=== PATIENT | female | born 1985 | race Asian ===

== ENCOUNTER 2017-03-11 12:43 | Emergency (ER) | payer OTHER ==
[2017-03-11 15:41] LABS: Hematocrit 40 % (35-47); Hemoglobin 13.6 g/dl (12.0-16.0); Mean Corpuscular HGB Conc 34 g/dl (31-36); Mean Corpuscular Hemoglobin 31 pg (27-31); Mean Corpuscular Volume 92 fL (80-97); Mean Platelet Volume 8 um3 (7.4-10.4); Red Blood Count 4.37 10^6/ul (4.0-5.4); Red Cell Distribution Width 14 % (10.5-15)
[2017-03-11 15:57] LABS: BUN/Creatinine Ratio 13.6 (8-20); Calcium 9.4 mg/dL (8.6-10.3); EGFR African American 151.9 (>60); EGFR Non-African American 118.1 (>60); Potassium 3.6 mmol/L (3.5-5.0)
[2017-03-11 15:59] LABS: Urine Bilirubin Negative (Negative); Urine Glucose Negative (Negative); Urine Nitrite Negative (Negative)
[2017-03-11 16:14] LABS: Urine Bacteria 2+ (Absent)
--- NOTE | 2017-03-11 18:57 | RAD ---
HISTORY: Abdominal pain in a woman. COMPARISONS: None TECHNIQUE: Multiple transverse and longitudinal ultrasound images were obtained of the pelvis using grayscale, color flow, spectral and M-mode sonographic imaging. FINDINGS: UTERUS: The uterus is normal in shape, size, contour, and echotexture. GESTATION: The gestational sac measures 1.7 x 1.2 x 1.8 cm. This yields a mean rotational sac diameter of 1.6 cm, corresponding to gestational age of 6 weeks and 3 days. A 3 mm yolk sac is identified. No pole is visualized. CUL-DE-SAC: There is no free fluid within the cul-de-sac. RIGHT OVARY: The right ovary measures 3 x 2 x 2.4 cm. LEFT OVARY: The left ovary measures 2.6 x 1.6 x 2.0 cm. IMPRESSION: Gestational sac with a mean sac diameter of 1.6 cm corresponding to a gestational age of 6 weeks and 3 days without identification of a pole. These findings could BE due to pole too early to visualize, spontaneous or ectopic . Close clinical and sonographic follow-up including serial beta hCG acquisition is advised.
[2017-03-11] MEDS ORDERED: Cephalexin CAP* 500 MG PO ONE (19:01)
[2017-03-11 19:34] VITALS: BP 115/53
--- NOTE | 2017-03-18 10:28 | ED ---
I, Oh,Soohzulema, scribed for Jose Eduardo Larose MD on 03/11/17 at 1529 . Abdominal Pain/Female - HPI Summary HPI Summary: Somewhat limited HPI due to certain level of language barrier. This 32 y/o female presents to ED for bilat lower abd pain. Positive nausea and diaphoresis. Negative for vomiting, vaginal discharge, or vaginal bleeding. She is 5 weeks . LMP was on 01/24/2017. Pt is currently on vitamin. Primary care involves provider in [place]. Pt has not established OB provider, but primary care involves Dr. Roche. - History of Current Complaint Chief Complaint: EDOBProblems Stated Complaint: 5WKS PREG/NAUSEA/SWEATS Time Seen by Provider: 03/11/17 15:10 Hx Obtained From: Patient Onset/Duration: Gradual Onset Pain Intensity: 4 Pain Scale Used: 0-10 Numeric Location: Discrete At: RLQ, Discrete At: LLQ Radiates: No Character: Dull Aggravating Factor(s): Nothing Alleviating Factor(s): Nothing Associated Signs and Symptoms: Positive: Diaphoresis, Nausea. Negative: Vaginal Bleeding, Vaginal Discharge, Vomiting Allergies/Adverse Reactions: Allergies Allergy/AdvReac Type Severity Reaction Status Date / Time No Known Allergies Allergy Verified 03/11/17 15:14 PMH/Surg Hx/FS Hx/Imm Hx Cardiovascular History: Denies: Hx Myocardial Infarction Infectious Disease History: Denies: Traveled Outside the [place] in Last 30 Days - Family History Known Family History: Negative: Other - ectopic - Social History Lives: With Family Alcohol Use: None Hx Substance Use: No Substance Use Type: Reports: None Hx Tobacco Use: No Smoking Status (MU): Never Smoked Tobacco Review of Systems Positive: Skin Diaphoresis. Negative: Fever, Chills Negative: Sore Throat Negative: Chest Pain Negative: Shortness Of Breath, Cough Positive: Abdominal Pain, Nausea. Negative: Vomiting Negative: dysuria, hematuria Negative: Myalgia, Edema Negative: Rash Neurological: Other - Negative for dizziness All Other Systems Reviewed And Are Negative: Yes Physical Exam - Summary Physical Exam Summary: Constitutional: Well-developed, Well-nourished, Alert. (-) Distressed Skin: Warm, Dry HENT: Normocephalic; Atraumatic Eyes: Conjunctiva normal Neck: Musculoskeletal ROM normal neck. (-) JVD, (-) Stridor, (-) Tracheal deviation Cardio: Rhythm regular, rate normal, Heart sounds normal; Intact distal pulses; The pedal pulses are 2+ and symmetric. Radial pulses are 2+ and symmetric. (-) Murmur Pulmonary/Chest wall: Effort normal. (-) Respiratory distress, (-) Wheezes, (-) Rales Abd: Soft, (-) Tenderness, (-) Distension, (-) Guarding, (-) Rebound Musculoskeletal: (-) Edema Lymph: (-) Cervical adenopathy Neuro: Alert, Oriented x3 Psych: Mood and affect Normal Triage Information Reviewed: Yes Vital Signs On Initial Exam: Initial Vitals Temp Pulse Resp BP Pulse Ox 98.1 F 89 20 110/59 98 03/11/17 12:46 03/11/17 12:46 03/11/17 12:46 03/11/17 12:46 03/11/17 12:46 Vital Signs Reviewed: Yes Diagnostics - Vital Signs Vital Signs Temp Pulse Resp BP Pulse Ox 03/11/17 12:46 98.1 F 89 20 110/59 98 - Laboratory Result Diagrams: 03/11/17 15:36 03/11/17 15:36 Lab Statement: Any lab studies that have been ordered have been reviewed, and results considered in the medical decision making process. - Additional Comments Diagnostic Additional Comments: Transvaginal -- Gestational sac with a mean sac diameter of 1.6 cm corresponding to a gestational age of 6 weeks and 3 days without identification of a pole. These findings could BE due to pole too early to visualize, spontaneous or ectopic . Close clinical and sonographic follow-up including serial beta hCG acquisition is advised. Re-Evaluation - Re-Evaluation First Eval Re-Evaluation Time: 19:12 Comment: Pt is updated with US imaging results. Pt is informed with possibility of ectopic , aborted , and early , and is strongly encouraged to f/u with inspector semiconductor wafer. Abdominal Pain Fem Course/Dx - Course Course Of Treatment: This 5 week female presents to ED for bilat lower abd pain. Bloodwork is wnl. UA appears contaminated. US indicates Gestational sac with a mean sac diameter of 1.6 cm corresponding to a gestational age of 6 weeks and 3 days without identification of a pole. These findings could BE due tofetal pole too early to visualize, spontaneous or ectopic . Close clinical and sonographic follow-up including serial beta hCG acquisition is advised. Pt is updated with US imaging results. Pt is informed with possibility of ectopic , aborted , and early , and is strongly encouraged to f/u with inspector semiconductor wafer within next 2 days. - Diagnoses Provider Diagnoses: Early stage of , Abdominal pain during , UTI (urinary tract infection) Discharge - Discharge Plan Condition: Stable Disposition: HOME Prescriptions: Cephalexin CAP* [Keflex CAP*] 500 mg PO QID #20 cap Patient Education Materials: Cephalexin (By mouth), Abdominal Pain in (ED) Referrals: Eliana Mccann MD [Primary Care Provider] - 2 Days Jean-Pierre Cueto MD [Medical Doctor] - 2 Days The documentation as recorded by the Jose Armando louis Soohyun accurately reflects the service I personally performed and the decisions made by Thuan rodríguez Jerry, MD.
== END 2017-03-11 19:15 | disposition home or self-care (01) ==
LOC: ED 12:43
DX: O23.41 Unspecified infection of urinary tract in pregnancy, first trimester (principal); R10.30 Lower abdominal pain, unspecified; Z3A.01 Less than 8 weeks gestation of pregnancy
CPT/HCPCS: 36415; 76817; 80048; 81003; 81015; 84702; 85027; 87086; 99282

== ENCOUNTER 2017-04-29 18:58 | Emergency (ER) | payer OTHER ==
[2017-04-29 20:21] LABS: Hematocrit 36 % (35-47); Hemoglobin 12.2 g/dl (12.0-16.0); Mean Corpuscular HGB Conc 34 g/dl (31-36); Mean Corpuscular Hemoglobin 31 pg (27-31); Mean Corpuscular Volume 91 fL (80-97); Mean Platelet Volume 8 um3 (7.4-10.4); Red Blood Count 3.95 10^6/ul (4.0-5.4); Red Cell Distribution Width 14 % (10.5-15); White Blood Count 7.4 10^3/ul (3.5-10.8)
[2017-04-29 20:33] LABS: Albumin 3.9 g/dL (3.2-5.2); BUN/Creatinine Ratio 11.6 (8-20); Calcium 9.4 mg/dL (8.6-10.3); EGFR African American 218.8 (>60); EGFR Non-African American 170.2 (>60); Globulin 2.9 g/dL (2-4); Potassium 3.5 mmol/L (3.5-5.0); Total Bilirubin 0.2 mg/dL (0.2-1.0); Total Protein 6.8 g/dL (6.4-8.9)
--- NOTE | 2017-04-29 22:17 | RAD ---
Indication: Vaginal bleeding, . Real-time sonography of the was performed. There is a single intrauterine gestation with a mean crown-rump length of 7.4 cm corresponding to gestational age of 13 weeks 4 days. heart activity is noted at 140 bpm. Amniotic fluid is within normal limits. The cervix measures 7 cm. Ovaries are not visualized. IMPRESSION: Single intrauterine gestation with a gestational age of 13 weeks 4 days. Estimated date of delivery is October 31, 2017.
--- NOTE | 2017-04-29 22:49 | ED ---
GI/ HPI - HPI Summary HPI Summary: (1 ) 13 week pt here w/ vaginal bleeding and lower pelvic tightness today. She reports tightness in lower pelvic area started around 12 today. Vaginal bleeding started around 18:00. Comes and goes. No tissue observed. Denies fever, chills, nausea, vomiting, diarrhea. She has been taking nitrofurantoin for a UTI. - History of Current Complaint Chief Complaint: EDOBProblems Time Seen by Provider: 04/29/17 19:40 Stated Complaint: 3 MOS /BLEEDING Hx Obtained From: Patient, Family/Document Control Associate - Pain Intensity: 1 - Allergy/Home Medications Allergies/Adverse Reactions: Allergies Allergy/AdvReac Type Severity Reaction Status Date / Time No Known Allergies Allergy Verified 03/11/17 15:14 PMH/Surg Hx/FS Hx/Imm Hx Previously Healthy: Yes Endocrine/Hematology History: Denies: Hx Anticoagulant Therapy, Hx Blood Disorders, Hx Unexplained Bleeding Cardiovascular History: Denies: Hx Myocardial Infarction History: Reports: Hx Kidney Infection - current UTI - Immunization History Date of Tetanus Vaccine: unknown Date of Influenza Vaccine: NO Immunizations Up to Date: Yes Infectious Disease History: No Infectious Disease History: Denies: Traveled Outside the [place] in Last 30 Days - Family History Known Family History: Negative: Other - ectopic - Social History Lives: With Family Alcohol Use: None Hx Substance Use: No Substance Use Type: Reports: None Hx Tobacco Use: No Smoking Status (MU): Never Smoked Tobacco Review of Systems Constitutional: Negative Negative: Fever, Chills, Fatigue Cardiovascular: Negative Negative: Palpitations, Chest Pain Respiratory: Negative Negative: Shortness Of Breath Gastrointestinal: Other - see HPI Positive: see HPI. Negative: dysuria, discharge, frequency, flank pain, incontinence Musculoskeletal: Negative - denies back pain Skin: Negative Neurological: Negative Positive: Anxious All Other Systems Reviewed And Are Negative: Yes Physical Exam Triage Information Reviewed: Yes Vital Signs On Initial Exam: Initial Vitals Temp Pulse Resp Pulse Ox 97.5 F 109 24 100 04/29/17 18:59 04/29/17 18:59 04/29/17 18:59 04/29/17 18:59 Vital Signs Reviewed: Yes Appearance: Positive: Well-Appearing, No Pain Distress - concerned, anxious, Well-Nourished Skin: Positive: Warm, Dry - no ecchymosis Head/Face: Positive: Normal Head/Face Inspection Eyes: Positive: Normal, EOMI Neck: Positive: Supple, Nontender Respiratory/Lung Sounds: Positive: Clear to Auscultation, Breath Sounds Present Cardiovascular: Positive: Normal, RRR, Pulses are Symmetrical in both Upper and Lower Extremities, S1, S2. Negative: Murmur, Rub, Leg Edema Left, Leg Edema Right Abdomen Description: Positive: Other: - Full firm abdomenin lower pelvis - upper ab soft and tympanic, mild TTP central lower ab. Negative: CVA Tenderness (R), CVA Tenderness (L) Pelvic Exam: Positive: external exam normal - blood present in vaginal canal but no active bleeding Musculoskeletal: Positive: Normal, Strength/ROM Intact Neurological: Positive: Normal, Sensory/Motor Intact, Alert, Oriented to Person Place, Time, CN Intact II-III Psychiatric: Positive: Anxious - [place] Coma Scale Coma Scale Total: 15 Diagnostics - Vital Signs Vital Signs Temp Pulse Resp BP Pulse Ox 04/29/17 19:40 97.5 F 101 16 123/67 98 04/29/17 18:59 97.5 F 109 24 100 - Laboratory Lab Results: Lab Results 04/29/17 04/29/17 04/29/17 Range/Units 20:08 20:08 20:08 WBC 7.4 (3.5-10.8) 10^3/ul RBC 3.95 L (4.0-5.4) 10^6/ul Hgb 12.2 (12.0-16.0) g/dl Hct 36 (35-47) % MCV 91 (80-97) fL MCH 31 (27-31) pg MCHC 34 (31-36) g/dl RDW 14 (10.5-15) % Plt Count 212 (150-450) 10^3/ul MPV 8 (7.4-10.4) um3 Neut % (Auto) 80.7 (38-83) % Lymph % (Auto) 12.9 L (25-47) % [place] % (Auto) 5.2 (1-9) % Eos % (Auto) 0.7 (0-6) % Baso % (Auto) 0.5 (0-2) % Absolute Neuts (auto) 6.0 (1.5-7.7) 10^3/ul Absolute Lymphs (auto) 1.0 (1.0-4.8) 10^3/ul Absolute Monos (auto) 0.4 (0-0.8) 10^3/ul Absolute Eos (auto) 0.1 (0-0.6) 10^3/ul Absolute Basos (auto) 0 (0-0.2) 10^3/ul Absolute Nucleated RBC 0 10^3/ul Nucleated RBC % 0 INR (Anticoag Therapy) 0.86 L (0.89-1.11) APTT 30.4 (26.0-36.3) seconds Sodium 132 L (133-145) mmol/L Potassium 3.5 (3.5-5.0) mmol/L Chloride 106 (101-111) mmol/L Carbon Dioxide 23 (22-32) mmol/L Anion Gap 3 (2-11) mmol/L BUN 5 L (6-24) mg/dL Creatinine 0.43 L (0.51-0.95) mg/dL Est GFR ( Amer) 218.8 (>60) Est GFR (Non-Af Amer) 170.2 (>60) BUN/Creatinine Ratio 11.6 (8-20) Glucose 105 H (70-100) mg/dL Calcium 9.4 (8.6-10.3) mg/dL Total Bilirubin 0.20 (0.2-1.0) mg/dL AST 18 (13-39) U/L ALT 22 (7-52) U/L Alkaline Phosphatase 49 (34-104) U/L Total Protein 6.8 (6.4-8.9) g/dL Albumin 3.9 (3.2-5.2) g/dL Globulin 2.9 (2-4) g/dL Albumin/Globulin Ratio 1.3 (1-3) Beta HCG, Quant 81474.00 mIU/mL Result Diagrams: 04/29/17 20:08 04/29/17 20:08 Diagnostic Studies Comment: U/S reveals viable 13 week 4 days intrauterine single w/o mention of hemorrhage, malposition. FHR 140. Lab Statement: Any lab studies that have been ordered have been reviewed, and results considered in the medical decision making process. GIGU Course/Dx - Diagnoses Provider Diagnoses: Vaginal bleeding in patient at less than 20 weeks gestation Discharge - Discharge Plan Condition: Stable Disposition: HOME Patient Education Materials: Threatened Miscarriage (ED) Additional Instructions: Stop nitrofurantoin You may take tylenol for pain Rest and stay hydrated Follow-up with [facility] tomorrow - call in the morning to schedule an appointment - tell them you were seen here today for vaginal bleeding at 13 weeks and 4 days . *If you develop heavy bleeding, fever, fatigue, vomiting, severe abdominal pain , return to ED
[2017-04-29 23:19] VITALS: BP 119/76
== END 2017-04-29 23:19 | disposition home or self-care (01) ==
LOC: ED 18:58
DX: O46.91 Antepartum hemorrhage, unspecified, first trimester (principal); Z3A.13 13 weeks gestation of pregnancy; O23.41 Unspecified infection of urinary tract in pregnancy, first trimester
CPT/HCPCS: 36415; 76801; 80053; 84702; 85025; 85610; 85730; 99282

== ENCOUNTER 2017-10-29 04:31 | Inpatient (IN) | payer OTHER ==
[2017-10-29] MEDS ORDERED: Penicillin G Potassium IV* 5,000,000 UNITS in NS 0.9% 100 ML* 100 ML IVPB ONE (08:23)
--- NOTE | 2017-10-29 08:32 | HP ---
General Information - General Information Maternal Age: 32 Grav: 2 SAB: 1 Estimated Due Date: 10/30/17 Determined By: Early Ultrasound Gestational Age in Weeks and Days: 39 Weeks and 6 Days Maternal Blood Type and Rh: O Positive - Results this Serology/RPR Result: Non-Reactive Rubella Result: Immune HBsAg Result: Negative HIV Result: Negative GBS Culture Result: Positive Past Medical History Delivery History Comment: primigravida Pertinent Past Medical History: See Records - Hx latent TB. 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 Pertinent Family History: See Records - HTN - Antepartal Records Antepartal Records: Reviewed, Complicated by: - Early bleeding and marginal placenta previa that resolved by sono 07/2017 Review of Systems Constitutional: Uncomfortable - with uterine contractions CV Complaint: No Respiratory: Shortness of Breath: No Gastrointestinal: No Nausea/Vomiting, Normal Bowel Movement Genitourinary: No Dysuria, No Bleeding, No Leaking Fluid Musculoskeletal: Contractions Neurological: No Headache, No Visual Changes Movement: Normal - Comments Mild bilateral pedal edema Exam Allergies/Adverse Reactions: Allergies No Known Allergies Allergy (Verified 03/11/17 15:14) BP 127/72 HR 81 T 36.9 C RR 20 - Measurements Height: 5 ft 5 in Weight: 183 lb Weight in lbs: 183 Body Mass Index (BMI): 30.4 Pre- Weight: 163 lb Weight Gained This : 20 lbs and 0 ozs - Exam Abdomen: No Upper Quadrant Pain Breast: Breast Exam Deferred CVA: No CVA Tenderness Extremities: Edema - 1+ pitting edema LE bilaterally Heart: Normal Rhythm/Heart Sounds HEENT: No Significant Findings Lungs: Clear Bilaterally Rectal: Rectal Exam Deferred Reflexes: DTR 2+ Thyroid: No Thyromegaly - Cervical Exam VE: 3cm/70%/vtx -2 - Abdominal Exam Abdomen Exam: Non-Tender, Fundal Height Consistent with Dates - Membranes Membrane Status: Intact - Ultrasound/Biophysical Profile Ultrasound Status: Not Done EFM Findings - External Monitor Findings Baseline Heart Rate: 125 External Monitor Findings: Accelerations Present, No Pattern of Variable or Late Decelerations, Variability Moderate, Baseline Stable External Monitor Findings Comment: No evidence of metabolic acidemia Contractions: Regular - q 6 min, Moderate Assessment/Plan - Reason for Visit Reason for Visit: Labor - Obstetrical Risk Factors Obstetrical Risk Factors: GBS Positive - Plan Plan: Observe, Early Labor, Antibiotic Prophylaxis Plan Comment: Admit, begin GBS prophylaxis and continue to observe. Pt requests pain management by epidural when UCs stronger, closer. Anticipate - Date/Time of Admission Date of Admission: 10/29/17 Time of Admission: 08:35
[2017-10-29 08:47] LABS: ABS Basophils 0 10^3/ul (0-0.2); ABS Eosinophils 0 10^3/ul (0-0.6); ABS Lymphocytes 0.8 10^3/ul (1.0-4.8); ABS Monocytes 0.4 10^3/ul (0-0.8); ABS Neutrophils 5.7 10^3/ul (1.5-7.7); ABS Nucleated RBC 0 10^3/ul; Eosinophil % 0.4 % (0-6); Hematocrit 41 % (35-47); Hemoglobin 13.9 g/dl (12.0-16.0); Lymphocyte % 11.8 % (25-47); Mean Corpuscular HGB Conc 34 g/dl (31-36); Mean Corpuscular Hemoglobin 33 pg (27-31); Mean Corpuscular Volume 97 fL (80-97); Mean Platelet Volume 9 um3 (7.4-10.4); Nucleated Red Blood Cells % 0; Platelet Count 130 10^3/ul (150-450); Red Cell Distribution Width 16 % (10.5-15)
[2017-10-29] MEDS ORDERED: fentaNYL* 50 MCG/ML 2 ML VIAL (100 MCG VIAL) ONE (10:37)
[2017-10-29] MEDS ORDERED: OBEPIDURAL* 250 ML EPIDURAL ONE (10:46)
[2017-10-29] MEDS ORDERED: Famotidine TAB* 20 MG PO PRN (11:37)
[2017-10-29] MEDS ORDERED: Phenylephrine IV* 40 MCG/ML 10 ML SYRINGE IV PUSH PRN ×2 (11:37)
[2017-10-29] MEDS ORDERED: Sodium Citrate/Citric Acid* 15 ML UDC PO PRN (11:37)
[2017-10-29] MEDS ORDERED: OBEPIDURAL* 250 ML EPIDURAL SCH (12:00)
[2017-10-29] MEDS: Penicillin G Potassium IV* 2,500,000 UNITS in NS 0.9% 100 ML* 100 ML IVPB SCH ×3 (13:25→21:02)
[2017-10-29] MEDS ORDERED: Oxytocin in LR* 20 UNITS/1,000 ML BAG IVPB ONE (13:43)
[2017-10-29] MEDS ORDERED: Oxytocin in LR* 20 UNITS/1,000 ML BAG IVPB SCH (14:10)
[2017-10-29] MEDS ORDERED: Acetaminophen TAB* 325 MG PO PRN (22:35)
[2017-10-29] MEDS ORDERED: Acetaminophen TAB* 325 MG ONE (22:36)
[2017-10-29] MEDS ORDERED: Gentamicin ADULT (*) 120 MG in NS 0.9% 100 ML* 100 ML IVPB ONE (22:39)
[2017-10-29] MEDS ORDERED: Clindamycin 900 MG IVPREMIX(* 900 MG/50 ML SDV IV ONE (22:53)
[2017-10-30] MEDS ORDERED: fentaNYL* 50 MCG/ML 2 ML VIAL (100 MCG VIAL) ONE (01:12)
[2017-10-30] MEDS ORDERED: Lidocaine 2% EPI 1:200000 MPF* 20 ML VIAL ONE (01:15)
[2017-10-30] MEDS ORDERED: Morphine PF AMP (0.5MG/ML)* 5 MG/10 ML AMP ONE (01:16)
[2017-10-30] MEDS ORDERED: Sodium Bicarbonate 8.4% IV* 50 ML VIAL ONE (01:16)
[2017-10-30] MEDS ORDERED: Carboprost Tromethamine* 250 MCG INJ ONE (01:45)
[2017-10-30] MEDS ORDERED: Phenylephrine INJ* 10 MG/ML 1 ML VIAL (10 MG) ONE (02:01)
[2017-10-30] MEDS ORDERED: Carboprost Tromethamine* 250 MCG INJ IM ONE (02:41)
[2017-10-30] MEDS ORDERED: Dibucaine 1% 28.35 GM TUBE PR PRN (02:41)
[2017-10-30] MEDS ORDERED: Zolpidem TAB* 5 MG PO PRN (02:41)
[2017-10-30] MEDS ORDERED: Witch Hazel PAD* JAR TOPICAL PRN (02:41)
[2017-10-30] MEDS ORDERED: Glycerin ADULT SUPP PR PRN (02:41)
[2017-10-30 02:54] LABS: ABS Basophils 0 10^3/ul (0-0.2); ABS Eosinophils 0 10^3/ul (0-0.6); ABS Lymphocytes 1.1 10^3/ul (1.0-4.8); ABS Monocytes 0.9 10^3/ul (0-0.8); ABS Nucleated RBC 0 10^3/ul; Eosinophil % 0 % (0-6); Hematocrit 39 % (35-47); Hemoglobin 13.2 g/dl (12.0-16.0); Lymphocyte % 7.8 % (25-47); Mean Corpuscular HGB Conc 34 g/dl (31-36); Mean Corpuscular Hemoglobin 33 pg (27-31); Mean Corpuscular Volume 98 fL (80-97); Mean Platelet Volume 10 um3 (7.4-10.4); Nucleated Red Blood Cells % 0; Platelet Count 111 10^3/ul (150-450); Red Blood Count 3.96 10^6/ul (4.0-5.4); Red Cell Distribution Width 16 % (10.5-15)
[2017-10-30] MEDS ORDERED: Ampicillin IV* 2 GM in NS 0.9% 100 ML* 100 ML IVPB SCH (03:00)
[2017-10-30 03:17] LABS: EGFR Non-African American 136.7 (>60)
[2017-10-30] MEDS: Ampicillin IV* 2 GM in NS 0.9% 100 ML* 100 ML IVPB SCH ×4 (03:42→22:40)
[2017-10-30] MEDS ORDERED: HYDROmorphone INJ* 1 MG/ML CARPUJECT SYRINGE IV PRN (03:44)
[2017-10-30] MEDS ORDERED: Ketorolac INJ* 30 MG/ML 1 ML VIAL IV PRN (03:44)
[2017-10-30] MEDS ORDERED: Nalbuphine* 20 MG/ML 1 ML VIAL IV PRN ×4 (03:44)
[2017-10-30] MEDS ORDERED: Naloxone* 0.4 MG/ML 1 ML VIAL IV PRN ×2 (03:44)
[2017-10-30] MEDS ORDERED: Ondansetron INJ* 2 MG/ML VIAL IV PRN ×2 (03:44)
[2017-10-30] MEDS ORDERED: fentaNYL* 50 MCG/ML 2 ML VIAL (100 MCG VIAL) IV PRN (03:44)
[2017-10-30] MEDS ORDERED: HYDROcodone/ACETAMIN 5-325 MG* 1 TAB PO PRN (03:44)
[2017-10-30] MEDS ORDERED: Acetaminophen TAB* 325 MG PO PRN ×2 (03:44→19:45)
[2017-10-30] MEDS ORDERED: Gentamicin ADULT (*) 80 MG in NS 0.9% 100 ML* 100 ML IVPB SCH (06:40)
[2017-10-30] MEDS: Gentamicin ADULT (*) 80 MG in NS 0.9% 100 ML* 100 ML IVPB SCH ×2 (08:38→16:18)
[2017-10-30 09:42] LABS: Hematocrit 32 % (35-47); Hemoglobin 10.9 g/dl (12.0-16.0); Mean Corpuscular HGB Conc 34 g/dl (31-36); Mean Corpuscular Hemoglobin 33 pg (27-31); Mean Corpuscular Volume 97 fL (80-97); Mean Platelet Volume 9 um3 (7.4-10.4); Platelet Count 120 10^3/ul (150-450); Red Blood Count 3.27 10^6/ul (4.0-5.4); Red Cell Distribution Width 15 % (10.5-15); White Blood Count 12.1 10^3/ul (3.5-10.8)
[2017-10-30] MEDS: Docusate CAP* 100 MG PO SCH ×3 (09:45→20:48)
[2017-10-30] MEDS: HYDROcodone/ACETAMIN 5-325 MG* 1 TAB PO PRN ×3 (09:45→17:48)
[2017-10-30] MEDS: Simethicone TAB* 80 MG TAB.CHEW PO SCH ×4 (09:45→20:47)
--- NOTE | 2017-10-30 11:13 | CONSULT ---
Consult Consult: PCP: Hilda Mccann MD Consulting Physician: Mayuri Green MD DIRECTOR OF SPORTS PERFORMANCE Date/Time: 10/30/2017 0330 Reaon for Consult: hyporesponsive episode intra-operative section HPI: Mrs García is a 32 YO female who is admitted for delivery complicated by chorioamnionitis on appropriate ABX coverage and taken to tonight for failure to progress. During the surgery she had a hypo- responsive episode lasting for 45minutes in which she would moan to painful stimuli, moan, and resist attempts to open her eyes. Throughout her vitals remained stable without any significant hypo- or hypertensive episodes. She maintained her own airway, breathing sonorously. Anesthesia was provided by epidural only. There was no evidence of high spinal symptoms such as apnea. Prior to becoming hypo-responsive she did report feeling some SOB, but no other complaints were voiced. There was no twitching, lip smacking, or convulsions. The episode lasted into recovery, a total of ~45 minutes. Post-operative labs were most notable for WBCs of 14k and lactic acid of 2.9, both explained by her infection. Upon my evaluation in the recovery room, she was back to her baseline. Her son rests quietly on her chest. There is a moderate language barrier which we were able to overcome. Her course was reportedly otherwise unremarkable PMedHx latent TB w/ negative CXR Ambulatory Orders Vitamin TAB* 1 tab PO DAILY 10/29/17 Allergies No Known Allergies Allergy (Verified 03/11/17 15:14) PSurgHx immediately s/p section elective x1 SocHx: no tobacco, alcohol, or recreational drugs; /abortus 1; full code status FamHx: negative for seizure disorder ROS: as above, otherwise reviewed and all were negative vitals: Vital Signs Temp 37.0 C 10/30/17 07:46 Pulse 85 10/30/17 07:46 Resp 16 10/30/17 09:45 BP 108/44 10/30/17 07:46 Pulse Ox 99 10/30/17 04:30 Intake & Output 10/29/17 10/29/17 10/30/17 11:59 23:59 11:59 Intake Total 1000 1000 1700 Output Total 1800 Balance 1000 1000 -100 Weight 83.007 kg Intake: IV Fluids 1000 1000 450 LR 1000 1000 450 Medicated IV 950 GEN - Oxytocin 950 Oral 300 Output: Kathleen 1800 Constitutional: NAD, normally developed, obese female HEENM: atraumatic; PERRLA/EOMI, tongue midline, symmetric palatal motion, sclera /conjunctiva: anicteric/clear; hearing: clinically intact; oropharynx: clear, mucosa moist Neck: soft tissue: no nuchal rigidity; thyroid: normal Pulmonary: clear to auscultation bilaterally, good aeration, no accessory muscle use CV: RR/RR, normal S1S2, no carotid bruit, no jugular venous distention, 2+ B DP/ PT, 1+ B pedal edema Abdominal: soft, non-distended, non-tender, no rebound/guarding/rigidity, normoactive bowel sounds, no hepatosplenomegaly or masses, no costovertebral angle tenderness Musculoskeletal: general: grossly intact, crude touch intact globally, moves extremities equally x4 Integumental: normal appearance and texture of exposed skin Psychiatric orientation: AA&O to PPS affect: calm mood: pleasant eye contact: good content: reliable responses: moderately difficult communication 2nd language barrier insight: fair Testing: Lab Results 10/29/17 10/29/17 10/30/17 Range/Units 08:28 08:28 02:00 WBC 7.0 (3.5-10.8) 10^3/ul RBC 4.20 (4.0-5.4) 10^6/ul Hgb 13.9 (12.0-16.0) g/dl Hct 41 (35-47) % MCV 97 (80-97) fL MCH 33 H (27-31) pg MCHC 34 (31-36) g/dl RDW 16 H (10.5-15) % Plt Count 130 L (150-450) 10^3/ul MPV 9 (7.4-10.4) um3 Neut % (Auto) 82.2 (38-83) % Lymph % (Auto) 11.8 L (25-47) % [place] % (Auto) 5.2 (0-7) % Eos % (Auto) 0.4 (0-6) % Baso % (Auto) 0.4 (0-2) % Absolute Neuts (auto) 5.7 (1.5-7.7) 10^3/ul Absolute Lymphs (auto) 0.8 L (1.0-4.8) 10^3/ul Absolute Monos (auto) 0.4 (0-0.8) 10^3/ul Absolute Eos (auto) 0 (0-0.6) 10^3/ul Absolute Basos (auto) 0 (0-0.2) 10^3/ul Absolute Nucleated RBC 0 10^3/ul Nucleated RBC % 0 Sodium (133-145) mmol/L Potassium (3.5-5.0) mmol/L Chloride (101-111) mmol/L Carbon Dioxide (22-32) mmol/L Anion Gap (2-11) mmol/L BUN (6-24) mg/dL Creatinine (0.51-0.95) mg/dL Est GFR ( Amer) (>60) Est GFR (Non-Af Amer) (>60) BUN/Creatinine Ratio (8-20) Glucose (70-100) mg/dL POC Glucose (mg/dL) 115 H (70-100) mg/dL Lactic Acid (0.5-2.0) mmol/L Calcium (8.6-10.3) mg/dL Total Bilirubin (0.2-1.0) mg/dL AST (13-39) U/L ALT (7-52) U/L Alkaline Phosphatase (34-104) U/L Total Protein (6.4-8.9) g/dL Albumin (3.2-5.2) g/dL Globulin (2-4) g/dL Albumin/Globulin Ratio (1-3) Blood Type O Positive Antibody Screen Negative 10/30/17 10/30/17 10/30/17 Range/Units 02:35 02:35 02:35 WBC 14.0 H (3.5-10.8) 10^3/ul RBC 3.96 L (4.0-5.4) 10^6/ul Hgb 13.2 (12.0-16.0) g/dl Hct 39 (35-47) % MCV 98 H (80-97) fL MCH 33 H (27-31) pg MCHC 34 (31-36) g/dl RDW 16 H (10.5-15) % Plt Count 111 L (150-450) 10^3/ul MPV 10 (7.4-10.4) um3 Neut % (Auto) 85.8 H (38-83) % Lymph % (Auto) 7.8 L (25-47) % [place] % (Auto) 6.2 (0-7) % Eos % (Auto) 0 (0-6) % Baso % (Auto) 0.2 (0-2) % Absolute Neuts (auto) 12.0 H (1.5-7.7) 10^3/ul Absolute Lymphs (auto) 1.1 (1.0-4.8) 10^3/ul Absolute Monos (auto) 0.9 H (0-0.8) 10^3/ul Absolute Eos (auto) 0 (0-0.6) 10^3/ul Absolute Basos (auto) 0 (0-0.2) 10^3/ul Absolute Nucleated RBC 0 10^3/ul Nucleated RBC % 0 Sodium 135 (133-145) mmol/L Potassium 3.3 L (3.5-5.0) mmol/L Chloride 105 (101-111) mmol/L Carbon Dioxide 19 L (22-32) mmol/L Anion Gap 11 (2-11) mmol/L BUN 5 L (6-24) mg/dL Creatinine 0.52 (0.51-0.95) mg/dL Est GFR ( Amer) 175.7 (>60) Est GFR (Non-Af Amer) 136.7 (>60) BUN/Creatinine Ratio 9.6 (8-20) Glucose 116 H (70-100) mg/dL POC Glucose (mg/dL) (70-100) mg/dL Lactic Acid 2.9 H* (0.5-2.0) mmol/L Calcium 9.2 (8.6-10.3) mg/dL Total Bilirubin 0.60 (0.2-1.0) mg/dL AST 15 (13-39) U/L ALT 9 (7-52) U/L Alkaline Phosphatase 197 H (34-104) U/L Total Protein 5.4 L (6.4-8.9) g/dL Albumin 3.0 L (3.2-5.2) g/dL Globulin 2.4 (2-4) g/dL Albumin/Globulin Ratio 1.3 (1-3) Blood Type Antibody Screen 10/30/17 10/30/1710/30/18 Range/Units 03:25 09:26 09:26 WBC 12.1 H (3.5-10.8) 10^3/ul RBC 3.27 L (4.0-5.4) 10^6/ul Hgb 10.9 L (12.0-16.0) g/dl Hct 32 L (35-47) % MCV 97 (80-97) fL MCH 33 H (27-31) pg MCHC 34 (31-36) g/dl RDW 15 (10.5-15) % Plt Count 120 L (150-450) 10^3/ul MPV 9 (7.4-10.4) um3 Neut % (Auto) (38-83) % Lymph % (Auto) (25-47) % [place] % (Auto) (0-7) % Eos % (Auto) (0-6) % Baso % (Auto) (0-2) % Absolute Neuts (auto) (1.5-7.7) 10^3/ul Absolute Lymphs (auto) (1.0-4.8) 10^3/ul Absolute Monos (auto) (0-0.8) 10^3/ul Absolute Eos (auto) (0-0.6) 10^3/ul Absolute Basos (auto) (0-0.2) 10^3/ul Absolute Nucleated RBC 10^3/ul Nucleated RBC % Sodium (133-145) mmol/L Potassium (3.5-5.0) mmol/L Chloride (101-111) mmol/L Carbon Dioxide (22-32) mmol/L Anion Gap (2-11) mmol/L BUN (6-24) mg/dL Creatinine (0.51-0.95) mg/dL Est GFR ( Amer) (>60) Est GFR (Non-Af Amer) (>60) BUN/Creatinine Ratio (8-20) Glucose (70-100) mg/dL POC Glucose (mg/dL) (70-100) mg/dL Lactic Acid 3.0 H* 2.8 H* (0.5-2.0) mmol/L Calcium (8.6-10.3) mg/dL Total Bilirubin (0.2-1.0) mg/dL AST (13-39) U/L ALT (7-52) U/L Alkaline Phosphatase (34-104) U/L Total Protein (6.4-8.9) g/dL Albumin (3.2-5.2) g/dL Globulin (2-4) g/dL Albumin/Globulin Ratio (1-3) Blood Type Antibody Screen intraoperative telemetry: normal per anesthesiology Impression: 32F w/ hypo-responsive episode intro- lasting ~45minutes to finally clear in recovery DIAGNOSIS & PLAN Primary hypo-responsive episode : uncertain etiology, possibly brief conversion disorder 2nd emotional charged situation : recommend monitoring as per post- protocol : Hospitalist service will follow : Thank for this interesting consult on this pleasant young woman. lactic acidosis : likely 2nd choreoamnionitis : recommend 2L NS bolus and recheck in 3-4hours Secondary Latent TB : continue outpatient surveillance via PCP
[2017-10-30] MEDS ORDERED: Ibuprofen TAB* 600 MG ONE (13:49)
--- NOTE | 2017-10-30 13:51 | PN ---
Subjective Date of Service: 10/30/17 Interval History: Pt is feeling better today. She states her abdomen is sore. She got up to standing this morning and felt dizzy but did not pass out. She does not recall the events of last evening. Objective Active Medications: Acetaminophen (Tylenol Tab*) 650 mg PO Q4H PRN PRN Reason: PAIN Hydrocodone Bitart/Acetaminophen ([place] 5-325 Tab*) 1 tab PO Q3H PRN PRN Reason: give one dose to start Stop: 10/30/17 19:45 Last Admin: 10/30/17 09:45 Dose: 1 tab Dibucaine (Nupercainal 1% Oint*) 1 applic GA QID PRN PRN Reason: DISCOMFORT Docusate Sodium (Colace Cap*) 100 mg PO TID STEVE Last Admin: 10/30/17 09:45 Dose: 100 mg Ferrous Gluconate (Fergon Tab*) 324 mg PO BID STEVE Glycerin (Glycerin Adult Supp*) 1 supp GA ONCE PRN PRN Reason: CONSTIPATION Fentanyl/Ropivacaine (Fentanyl 2 Mcg/Ml+Ropivacaine 0.1% Epidural*) 250 mls @ 0 mls/hr EPIDURAL Q24H STEVE; Per Protocol PRN Reason: Protocol Last Admin: 10/29/17 14:13 Dose: Not Given Lactated Ringer's (Lactated Ringers 1000 Ml Bag*) 1,000 mls @ 125 mls/hr IV PER RATE [facility] Last Admin: 10/29/17 14:06 Dose: 125 mls/hr Lactated Ringer's (Lactated Ringers 1000 Ml Bag*) 1,000 mls @ 2,000 mls/hr IV .BOLUS PRN PRN Reason: hypotension Lactated Ringer's (Lactated Ringers 1000 Ml Bag*) 1,000 mls @ 125 mls/hr IV PER RATE STEVE Lactated Ringer's (Lactated Ringers 1000 Ml Bag*) 1,000 mls @ 2,000 mls/hr IV ONCE PRN PRN Reason: Non-Reassuring Heart Pattern Oxytocin (Pitocin In Lr*) 20 units in 1,000 mls @ 0 mls/hr IVPB .PER PARAMETERS STEVE; As Directed PRN Reason: Protocol Lactated Ringer's (Lactated Ringers 1000 Ml Bag*) 1,000 mls @ 0 mls/hr IV KVO STVEE PRN Reason: KVO Last Admin: 10/30/17 12:13 Dose: 125 mls/hr Ampicillin Sodium 2 gm/ Sodium (Chloride) 100 mls @ 200 mls/hr IVPB Q6H [facility] Last Admin: 10/30/17 09:45 Dose: 200 mls/hr Gentamicin Sulfate 80 mg/ (Sodium Chloride) 102 mls @ 200 mls/hr IVPB 0000,0800 ,1600 [facility] Stop: 10/31/17 08:00 Last Admin: 10/30/17 08:38 Dose: 200 mls/hr Ibuprofen (Motrin Tab*) 600 mg PO Q6H PRN PRN Reason: PAIN - MILD Nalbuphine HCl (Nubain*) 5 mg IV Q6H PRN PRN Reason: Nausea/Vomiting Stop: 10/30/17 19:45 Nalbuphine HCl (Nubain*) 5 mg IV Q6H PRN PRN Reason: pruritis Stop: 10/30/17 19:45 Ondansetron HCl (Zofran Inj*) 4 mg IV Q6H PRN PRN Reason: Nausea/Vomiting Stop: 10/30/17 19:45 Oxycodone/Acetaminophen (Percocet 5/325 Tab*) 1 tab PO Q4H PRN PRN Reason: PAIN - MODERATE Oxycodone/Acetaminophen (Percocet 5/325 Tab*) 2 tab PO Q4H PRN PRN Reason: PAIN - SEVERE Phenylephrine HCl (Neosynephrine Iv*) 20 mcg IV PUSH Q2M PRN PRN Reason: hypotension Phenylephrine HCl (Neosynephrine Iv*) 20 mcg IV PUSH Q2M PRN PRN Reason: non-reassure heart rate Simethicone (Mylicon Tab*) [address] [facility] Last Admin: 10/30/17 09:45 Dose: 80 mg Witch Tressa (Tucks*) 1 pad TOPICAL .PRN PRN PRN Reason: DISCOMFORT Zolpidem Tartrate (Ambien Tab*) 5 mg PO BEDTIME PRN PRN Reason: SLEEP Vital Signs - 8 hr 10/30/17 10/30/17 07:46 09:45 Temperature 98.6 F Pulse Rate 85 Respiratory 16 16 Rate Blood Pressure 108/44 (mmHg) Oxygen Devices in Use Now: None Appearance: Young female sitting up in bed, NAD Eyes: No Scleral Icterus Ears/Nose/Mouth/Throat: Mucous Membranes Moist Respiratory: Symmetrical Chest Expansion and Respiratory Effort, Clear to Auscultation Cardiovascular: RRR, No Edema, - - III/ systolic murmur heard best the LUSB Abdominal: - - BS+, incision not inspected by myself Extremities: No Clubbing, Cyanosis Skin: No Nodules or Sclerosis Neurological: Alert and Oriented x 3 Result Diagrams: 10/30/17 09:26 10/30/17 02:35 Assess/Plan/Problems-Billing Ms García is a 32yo F who underwent urgent last evening for failure to progress in the setting of chorioamnionitis and had an approximate 45min episode of decreased responsiveness (responded-moaned to pain but no response to verbal stimulus). - Patient Problems (1) Decreased responsiveness Current Visit: Yes Status: Acute Code(s): R41.89 - OTH SYMPTOMS AND SIGNS W COGNITIVE FUNCTIONS AND AWARENESS SNOMED Code(s): 0886777 Comment: Unclear what caused the episode of decreased responsiveness. ? vasovagal event given she was noted to be pale and diaphoretic vs conversion disorder (seems less likely). Labs are mildly abnormal but no significant concerns on the labs post . She appears to be back to her baseline mental status today. She does have a murmur on exam but ? secondary to . Will consider echocardiogram. (2) Chorioamnionitis Current Visit: Yes Status: Acute Code(s): O41.1290 - CHORIOAMNIONITIS, UNSP TRIMESTER, NOT APPLICABLE OR UNSP SNOMED Code(s): 11536404 Comment: Management per OBGYN. Currently she remains on ampicillin and gentamicin. (3) S/P Current Visit: Yes Status: Acute Code(s): Z98.891 - HISTORY OF UTERINE SCAR FROM PREVIOUS SURGERY SNOMED Code(s): 139857114 Comment: POD#0. Managment per OBGYN
[2017-10-30] MEDS: Ibuprofen TAB* 600 MG PO PRN ×2 (13:57→20:47)
[2017-10-30] MEDS ORDERED: oxyCODONE/Acetamin 5/325 MG* TAB PO PRN (19:45)
[2017-10-30] MEDS ORDERED: NS 0.9% 100 ML* 0 ML ONE (20:21)
[2017-10-30] MEDS ORDERED: Clindamycin 900 MG IVPREMIX(* 900 MG/50 ML SDV IV SCH (22:37)
[2017-10-31] MEDS: Gentamicin ADULT (*) 80 MG in NS 0.9% 100 ML* 100 ML IVPB SCH ×2 (00:51→17:55)
[2017-10-31] MEDS: Ampicillin IV* 2 GM in NS 0.9% 100 ML* 100 ML IVPB SCH (03:53)
[2017-10-31] MEDS: Simethicone TAB* 80 MG TAB.CHEW PO SCH ×3 (07:18→21:04)
[2017-10-31] MEDS: Docusate CAP* 100 MG PO SCH ×3 (07:18→21:03)
[2017-10-31] MEDS: Ibuprofen TAB* 600 MG PO PRN ×3 (07:19→21:03)
[2017-10-31] MEDS ORDERED: Ferrous Gluconate TAB* 324 MG TAB PO SCH (09:00)
[2017-10-31] MEDS: oxyCODONE/Acetamin 5/325 MG* TAB PO PRN ×2 (12:16→17:35)
--- NOTE | 2017-10-31 17:48 | OP ---
DATE OF SURGERY: 10/30/17 - ROOM #101 DATE OF : 85. SURGEON: Gerardo Green MD. COAL CUTTER: Ghislaine Li CNM. ANESTHESIA: Spinal. PRE-OP DIAGNOSES: Intrauterine at 40 weeks with an arrest of dilation and descent, and chorioamnionitis. POST-OP DIAGNOSES: Intrauterine at 40 weeks with an arrest of dilation and descent, and chorioamnionitis. OPERATIVE PROCEDURE: Primary low-transverse section. ESTIMATED BLOOD LOSS: 800 cc. FLUIDS: She received 1900 cc of IV crystalloid fluid. URINE OUTPUT: Clear. FINDINGS: Delivery of a viable male infant weighing 8 pounds 10 ounces with Apgars of 9 and 9 over thick meconium. Placenta was sent to pathology. The uterus, adnexa, bowel, and bladder were all within normal limits. DESCRIPTION OF PROCEDURE: The patient was taken to the operating room where she was identified. She was placed on operating table where a spinal anesthetic was obtained without difficulty. She was then placed in the supine position with a leftward tilt, prepped and draped in a normal sterile fashion. A Pfannenstiel skin incision was then made with a knife and carried through to the underlying layer of fascia. The fascia was nicked in the midline and extended laterally with curved Rueda scissors. The fascia was then grasped superiorly and inferiorly with Radha clamps and dissected off sharply from the rectus muscle. The rectus muscle was in the midline bluntly. The peritoneum was identified, grasped with pickups, and entered sharply with Metzenbaum scissors and extended superiorly and inferiorly, sharply. A bladder blade was inserted into the patient's abdomen, a bladder flap was created using Metzenbaum scissors over which the bladder blade was then reinserted. A low transverse uterine incision was made with a knife and extended laterally with bandage scissors. The 's head was then grasped and delivered atraumatically. The nose and mouth were suctioned. The rest of the infant's body was then suctioned. The cord was clamped and cut. The infant was handed off to awaiting document reviewer. Cord bloods were obtained. The placenta was removed manually and sent to pathology. The uterus was then exteriorized, cleared off all clot and debris using moist laparotomy sponges. The uterine incision was then closed using 0 Polysorb suture in a running locked fashion with a second imbricating layer of 0 Polysorb suture. At this point, the uterus was returned to the patient's abdomen. The gutters were then cleared of all clots and debris using moist laparotomy sponges. All the sponges were removed from the patient's abdomen. The peritoneum was then closed using 3-0 Polysorb suture in a running fashion. The fascia was closed using 0 Polysorb suture in a running fashion. The skin was closed with a 4-0 Monocryl subcuticular stitch. The patient tolerated the procedure well. Sponge, lap, needle counts were correct x2. She was then transferred to the recovery room area in stable condition. [id number]/[facility] #: [id number] THOMAS
[2017-11-01] MEDS: Ibuprofen TAB* 600 MG PO PRN ×3 (07:41→23:21)
[2017-11-01] MEDS: Docusate CAP* 100 MG PO SCH ×3 (09:04→21:02)
[2017-11-01] MEDS: Simethicone TAB* 80 MG TAB.CHEW PO SCH ×5 (09:05→21:02)
[2017-11-02] MEDS: Ibuprofen TAB* 600 MG PO PRN ×2 (06:34→12:47)
[2017-11-02 08:30] VITALS: BP 108/59
[2017-11-02] MEDS: Simethicone TAB* 80 MG TAB.CHEW PO SCH ×2 (10:28→12:47)
[2017-11-02] MEDS: Docusate CAP* 100 MG PO SCH ×2 (10:28→15:52)
--- NOTE | 2017-11-02 12:55 | PTEDU ---
Patient Name: MARIA A WONG MARIA A WONG selected video: Never Ever Shake a Baby to view on 11/02/2017 at 12:54:29 PM [email or web address] _
[2017-11-02] MEDS ORDERED: Tetan/Diph/Pertus SYR(Tdap)* 0.5 ML SYR(BOOSTRIX) use SYR IM ONE (13:30)
== END 2017-11-02 17:02 | disposition home or self-care (01) | DRG 765 ==
LOC: MCHOBOUT 04:31 → MCHOB 08:23
PROVIDERS: ADMIT Midwife; ATTEND Obstetrics & Gynecology
PROC: 10907ZC Drainage of Amniotic Fluid, Therapeutic from Products of Conception, Via Natural or Artificial Opening (ICD-10-PCS; 2017-10-30)
PROC: 4A1HXCZ Monitoring of Products of Conception, Cardiac Rate, External Approach (ICD-10-PCS; 2017-10-30)
PROC: 10D00Z1 Extraction of Products of Conception, Low, Open Approach (ICD-10-PCS; principal; 2017-10-30 01:03)
DX: O41.1230 Chorioamnionitis, third trimester, not applicable or unspecified (principal); O68 Labor and delivery complicated by abnormality of fetal acid-base balance; O99.824 Streptococcus B carrier state complicating childbirth; E66.9 Obesity, unspecified; O77.0 Labor and delivery complicated by meconium in amniotic fluid; O62.1 Secondary uterine inertia; R41.89 Other symptoms and signs involving cognitive functions and awareness; O76 Abnormality in fetal heart rate and rhythm complicating labor and delivery; O99.214 Obesity complicating childbirth; R76.11 Nonspecific reaction to tuberculin skin test without active tuberculosis; O75.89 Other specified complications of labor and delivery; Z37.0 Single live birth; Z3A.40 40 weeks gestation of pregnancy; Z68.30 Body mass index [BMI] 30.0-30.9, adult
CPT/HCPCS: 36415; 80053; 83605; 85025; 85027; 86850; 86900; 86901; 87040; 87086; 88307; 90715; A9270-GY; J0290; J1580; J2540; J3010